=== PATIENT | male | born 1940 | race American Indian/Alaskan Native ===

== ENCOUNTER 2019-11-18 22:29 | Inpatient (IN) | payer MEDICARE ==
[2019-11-19 09:51] LABS: Bilirubin,Urine NEG (Negative); Blood,Urine SM (Negative); Color,Urine Yellow (Yellow); Mucus,Urine FEW /HPF; Protein,Urine <15 mg/dL mg/dL (Negative); Urobilinogen,Urine < 2.0 mg/dL (<2.0)
[2019-11-19 10:00] LABS: Amphetamine Screen,Urine PRESUMPTIVE NEGATIVE; Benzodiazepines Screen,Urine PRESUMPTIVE NEGATIVE; Cannabinoid Screen,Urine PRESUMPTIVE NEGATIVE; Cocaine Screen,Urine PRESUMPTIVE NEGATIVE; Methadone Screen,Urine PRESUMPTIVE NEGATIVE; Opiate Screen,Urine PRESUMPTIVE NEGATIVE
--- NOTE | 2019-11-19 10:11 | XRay Report ---
CHEST 2 VIEWS INDICATION: Chest Pain. COMPARISON: None. FINDINGS: Support devices: None. Heart: Within normal limits. Lungs/Pleura: No acute air space or interstitial disease. Pleural thickening versus tiny left effus ion. IMPRESSION: Pleural thickening versus tiny left effusion. Signer Name: John Montgomery MD Signed: 11/19/2019 10:06 AM Workstation Name: [id number]
[2019-11-19 11:19] LABS: Basophils % (Auto) 0.4 % (0.0-1.8); Eosinophils # (Auto) 0.1 K/mm3 (0.0-0.4); Eosinophils % (Auto) 1.2 % (0.0-4.3); Hematocrit 42.3 % (35.5-45.6); Hemoglobin 13.8 gm/dl (11.8-15.2); Lymphocytes # (Auto) 0.8 K/mm3 (1.2-5.4); Lymphocytes % (Auto) 14.1 % (13.4-35.0); Mean Corpuscular HGB Conc 33 % (32-34); Mean Corpuscular Volume 97 fl (84-94); Monocytes # (Auto) 0.4 K/mm3 (0.0-0.8); Monocytes % (Auto) 7.8 % (0.0-7.3); Platelet Count 184 K/mm3 (140-440); Red Blood Count 4.37 M/mm3 (3.65-5.03); Red Cell Distribution Width 17.8 % (13.2-15.2)
[2019-11-19 11:41] LABS: Free T4 (Free Thyroxine) 1.69 ng/dL (0.76-1.46)
[2019-11-19 11:44] LABS: Alanine Aminotransferase 65 units/L (7-56); Albumin 3.6 g/dL (3.9-5); BUN/Creatinine Ratio 18; Blood Urea Nitrogen 20 mg/dL (9-20); Calcium 9.3 mg/dL (8.4-10.2); Hemolysis Index 18
[2019-11-19] MEDS ORDERED: dilTIAZem 25 MG/5 ML INJ IV STA (12:06)
--- NOTE | 2019-11-19 12:20 | History and Physical Report ---
History of Present Illness Chief complaint: My blood pressure is high and I need to get it checked out History of present illness: 79-year-old male with HTN, HLD, Severe Malnutrition presents to ED for evaluation. Patient states that he has has experienced decreased exercise tolerance, and dyspnea on exertion over the past 1 week. EMS notified and upon arrival the patient was found to be in distress and transported to [facility] for evaluation. Patient seen and evaluated in the emergency department. Patient lab and imaging studies reviewed. Patient found to have atrial fibrillation with rapid ventricular response as well as symptoms consistent with diastolic CHF. Patient also found to have urinary tract infection. Patient initiated on IV antibiotic therapy. Patient admitted to ALEX unit and placed on remote telemetry due to risk of cardiac decompensation. Patient treated with IV Cardizem for medical cardioversion in the emergency department with return to normal sinus rhythm. No prior admission for review. No medication listed at time of admission for reconciliation. Past History Past Medical History: hypertension, hyperlipidemia Past Surgical History: No surgical history, Other (reviewed) Social history: . denies: smoking, alcohol abuse, prescription drug abuse, IV drug use Family history: hypertension Medications and Allergies Allergies Allergy/AdvReac Type Severity Reaction Status Date / Time No Known Allergies Allergy Unverified 11/19/19 01:07 Home Medications Medication Instructions Recorded Confirmed Last Taken Type AtorvaSTATin [Lipitor] 40 mg PO QHS 11/19/19 11/19/19 11/18/19 History Losartan [Cozaar] 100 mg PO QHS 11/19/19 11/19/19 11/18/19 History Metoprolol [Lopressor] 100 mg PO QAM 11/19/19 11/19/19 11/18/19 History Spironolactone [Aldactone] 25 mg PO QDAY 11/19/19 11/19/19 11/18/19 History Review of Systems Constitutional: no weight loss, no weight gain, no fever Ears, nose, mouth and throat: no ear discharge, no tinnitis, no nose pain, no nasal congestion Cardiovascular: no chest pain, no orthopnea, no syncope Respiratory: no cough, no excessive sputum, no hemoptysis, no dyspnea on exertion Gastrointestinal: no nausea, no diarrhea, no constipation Genitourinary Male: no hematuria, no flank pain, no urinary frequency, no nocturia, no incontinence Rectal: no pain, no incontinence, no bleeding Musculoskeletal: no neck stiffness, no shooting arm pain, no shooting leg pain Integumentary: no pruritis, no redness Neurological: no transient paralysis, no paralysis, no weakness, no parathesias Psychiatric: no anxiety, no change in sleep habits, no sleep disturbances, no insomnia, no change in appetite, no change in libido Endocrine: no cold intolerance, no polyphagia, no polydipsia, no polyuria, no nocturia, no excessive sweating Hematologic/Lymphatic: no easy bruising, no easy bleeding, no lymphadenopathy Allergic/Immunologic: no urticaria, no allergic rhinitis Exam - Constitutional Vitals: Temp Pulse Resp BP Pulse Ox 97.9 F 112 H 20 160/104 97 11/19/19 00:18 11/19/19 09:00 11/19/19 09:00 11/19/19 09:00 11/19/19 09:00 General appearance: Present: mild distress - EENT Eyes: Present: PERRL ENT: hearing intact, clear oral mucosa - Neck Neck: Present: supple, normal ROM - Respiratory Respiratory effort: normal Respiratory: bilateral: CTA - Cardiovascular Rhythm: other (tachycardia) Heart Sounds: Present: S1 & S2. Absent: rub, click - Extremities Extremities: pulses symmetrical, No edema Peripheral Pulses: within normal limits - Abdominal General gastrointestinal: Present: soft, non-tender, non-distended, normal bowel sounds Male genitourinary: Present: normal - Integumentary Integumentary: Present: clear, warm, dry - Musculoskeletal Musculoskeletal: gait normal, strength equal bilaterally - Psychiatric Psychiatric: appropriate mood/affect, intact judgment & insight - Neurologic Neurologic: CNII-XII intact, moves all extremities Results - Labs CBC & Chem 7: 11/19/19 11:09 11/19/19 11:09 Labs: Abnormal lab results 11/19/19 11/19/19 11/19/19 Range/Units 09:21 11:09 11:09 MCV 97 H (84-94) fl RDW 17.8 H (13.2-15.2) % [place] % (Auto) 7.8 H (0.0-7.3) % Lymph # 0.8 L (1.2-5.4) K/mm3 Seg Neutrophils % 76.5 H (40.0-70.0) % Potassium 5.5 H (3.6-5.0) mmol/L Chloride 109.0 H (98-107) mmol/L Carbon Dioxide 21 L (22-30) mmol/L AST 45 H (5-40) units/L ALT 65 H (7-56) units/L Albumin 3.6 L (3.9-5) g/dL Free T4 (0.76-1.46) ng/dL Urine WBC (Auto) 24.0 H (0.0-6.0) /HPF 11/19/19 Range/Units 11:09 MCV (84-94) fl RDW (13.2-15.2) % [place] % (Auto) (0.0-7.3) % Lymph # (1.2-5.4) K/mm3 Seg Neutrophils % (40.0-70.0) % Potassium (3.6-5.0) mmol/L Chloride (98-107) mmol/L Carbon Dioxide (22-30) mmol/L AST (5-40) units/L ALT (7-56) units/L Albumin (3.9-5) g/dL Free T4 1.69 H (0.76-1.46) ng/dL Urine WBC (Auto) (0.0-6.0) /HPF Assessment and Plan - Patient Problems (1) Atrial fibrillation Current Visit: Yes Status: Acute Qualifiers: Atrial fibrillation type: unspecified Qualified Code(s): I48.91 - Unspecified atrial fibrillation Plan to address problem: Admit to ALEX unit: Remote telemetry, patient cardioverted with IV Cardizem bolus, oral Cardizem, echo, cardiology consulted in ED, thyroid panel, magnesium level. (2) Diastolic CHF Current Visit: Yes Status: Acute Qualifiers: Heart failure chronicity: acute Qualified Code(s): I50.31 - Acute diastolic (congestive) heart failure Plan to address problem: Strict I/O, daily weight, BNP, echo, supplemental oxygen, pulse oximetry, blood pressure control, afterload reduction, cardiology consulted in ED. (3) UTI (urinary tract infection) Current Visit: Yes Status: Acute Qualifiers: Encounter type: initial encounter Plan to address problem: Urinalysis, IV antibiotic therapy, CBC. (4) HTN (hypertension) Current Visit: Yes Status: Acute Qualifiers: Hypertension type: essential hypertension Qualified Code(s): I10 - Essential (primary) hypertension Plan to address problem: Monitor BP every shift, continue medical management. (5) DVT prophylaxis Current Visit: Yes Status: Acute Plan to address problem: SCD to bilateral lower extremities while in bed, prophylactic heparin.
[2019-11-19] MEDS ORDERED: ALBUTEROL 2.5 MG/3 ML NEBU IH PRN (13:28)
[2019-11-19] MEDS ORDERED: ACETAMINOPHEN 325 MG TAB PO PRN (13:28)
[2019-11-19] MEDS ORDERED: ONDANSETRON 4 MG/2 ML INJ IV PRN (13:28)
--- NOTE | 2019-11-19 13:37 | Emergency Department Report ---
ED General Adult HPI - General Chief complaint: High BP Stated complaint: HTN Time Seen by Provider: 11/19/19 08:52 Source: patient Mode of arrival: Stretcher Limitations: No Limitations - History of Present Illness Initial comments: 79-year-old male with significant past history presents with department complaining of having an episode of hypertension as he was due to have his lower extremity evaluated today for an infection with an ultrasound. States that he felt fairly normal overall blackhead. Blood pressure at home it was in the 170s over the 100s which is pink and diaphragm so wanted to have it evaluated. States occasionally feels a palpitation but reports no chest pain, fever, chills, sweats, nausea, vomiting, headache, blurred blurred vision, presyncope -: Gradual Radiation: non-radiation Severity scale (0 -10): 0 Consistency: constant Improves with: none Worsens with: none Associated Symptoms: denies other symptoms Treatments Prior to Arrival: none - Related Data Allergies Allergy/AdvReac Type Severity Reaction Status Date / Time No Known Allergies Allergy Unverified 11/19/19 01:07 ED Review of Systems ROS: Stated complaint: HTN Other details as noted in HPI Comment: All other systems reviewed and negative ED Past Medical Hx - Past Medical History Previous Medical History?: Yes Hx Hypertension: Yes Additional medical history: High Cholesterol - Surgical History Past Surgical History?: No - Social History Smoking Status: Never Smoker Substance Use Type: None ED Physical Exam - General Limitations: No Limitations General appearance: alert, in no apparent distress - Head Head exam: Present: atraumatic, normocephalic - Eye Eye exam: Present: normal appearance, PERRL, EOMI Pupils: Present: normal accommodation - ENT ENT exam: Present: mucous membranes moist, TM's normal bilaterally. Absent: normal orophraynx - Neck Neck exam: Present: normal inspection - Respiratory Respiratory exam: Present: normal lung sounds bilaterally. Absent: respiratory distress, wheezes, rhonchi - Cardiovascular Cardiovascular Exam: Present: regular rate, irregular rhythm. Absent: systolic murmur, diastolic murmur, rubs, gallop - GI/Abdominal GI/Abdominal exam: Present: soft, normal bowel sounds - Rectal Rectal exam: Present: deferred - Extremities Exam Extremities exam: Present: normal inspection - Back Exam Back exam: Present: normal inspection - Neurological Exam Neurological exam: Present: alert, oriented X3 - Psychiatric Psychiatric exam: Present: normal affect, normal mood - Skin Skin exam: Present: warm, dry, intact, normal color. Absent: rash ED Course Vital Signs 11/19/19 11/19/19 11/19/19 00:18 09:00 12:36 Temperature 97.9 F Pulse Rate 119 H 112 H 109 H Respiratory 18 20 19 Rate Blood Pressure 165/121 Blood Pressure 160/104 142/102 [Right] O2 Sat by Pulse 98 97 97 Oximetry 11/19/19 11/19/19 12:40 12:51 Temperature Pulse Rate 109 H 90 Respiratory 19 Rate Blood Pressure 142/102 Blood Pressure 119/85 [Right] O2 Sat by Pulse 97 Oximetry ED Medical Decision Making - Lab Data Result diagrams: 11/19/19 11:09 11/19/19 11:09 - EKG Data Rate: tachycardia - EKG Data Interpretation: other (atrial fibrillation) Critical care attestation.: If time is entered above; I have spent that time in minutes in the direct care of this critically ill patient, excluding procedure time. ED Disposition Clinical Impression: Atrial fibrillation Disposition: OP ADMIT IP TO THIS HOSP Is pt being admited?: Yes Does the pt Need Aspirin: Yes Condition: Stable Instructions: Supraventricular Tachycardia (ED) Referrals: PRIMARY CARE, [Primary Care Provider] - 3-5 Days
[2019-11-19] MEDS ORDERED: ASPIRIN 325 MG TAB PO ONE (13:38)
[2019-11-19] MEDS ORDERED: METOPROLOL SUCCINATE XL 100 MG TAB PO ONE (15:58)
[2019-11-19] MEDS ORDERED: cefTRIAXone/NS 1 GM/50 ML 1 GM/50 ML BAG IV ONE (15:58)
[2019-11-19] MEDS: METOPROLOL TARTRATE 100 MG TAB PO SCH (16:02)
[2019-11-19] MEDS: cefTRIAXone/NS 1 GM/50 ML 1 GM/50 ML BAG IV SCH (16:03)
[2019-11-19] MEDS: dilTIAZem 30 MG TAB PO SCH (17:55)
[2019-11-19 19:48] LABS: Free T4 (Free Thyroxine) 1.45 ng/dL (0.76-1.46)
[2019-11-19] MEDS: HEPARIN 5,000 UNIT/1 ML VIAL SUB-Q SCH (21:33)
[2019-11-19] MEDS: LOSARTAN 50 MG TAB PO SCH (21:33)
[2019-11-19] MEDS ORDERED: NON-FORMULARY EACH (Losartan [Cozaar] 100 MG) PO SCH (22:00)
[2019-11-20] MEDS: dilTIAZem 30 MG TAB PO SCH ×5 (00:33→23:33)
[2019-11-20 06:59] LABS: Basophils % (Auto) 0.5 % (0.0-1.8); Eosinophils # (Auto) 0.1 K/mm3 (0.0-0.4); Hematocrit 37.8 % (35.5-45.6); Hemoglobin 12.4 gm/dl (11.8-15.2); Lymphocytes % (Auto) 18.5 % (13.4-35.0); Mean Corpuscular HGB Conc 33 % (32-34); Mean Corpuscular Volume 96 fl (84-94); Monocytes # (Auto) 0.4 K/mm3 (0.0-0.8); Monocytes % (Auto) 7.9 % (0.0-7.3); Platelet Count 173 K/mm3 (140-440); Red Blood Count 3.92 M/mm3 (3.65-5.03)
[2019-11-20 07:21] LABS: Alanine Aminotransferase 49 units/L (7-56); Albumin 3.2 g/dL (3.9-5); BUN/Creatinine Ratio 19; Blood Urea Nitrogen 23 mg/dL (9-20); Calcium 8.2 mg/dL (8.4-10.2); Hemolysis Index 3
--- NOTE | 2019-11-20 08:24 | Consultation ---
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 denies: smoking, alcohol abuse, prescription drug abuse, IV drug use Family history: hypertension Medications and Allergies Allergies Allergy/AdvReac Type Severity Reaction Status Date / Time No Known Allergies Allergy Unverified 11/19/19 01:07 Home Medications Medication Instructions Recorded Confirmed Last Taken Type AtorvaSTATin [Lipitor] 40 mg PO QHS 11/19/19 11/19/19 11/18/19 History Losartan [Cozaar] 100 mg PO QHS 11/19/19 11/19/19 11/18/19 History Metoprolol [Lopressor] 100 mg PO QAM 11/19/19 11/19/19 11/18/19 History Spironolactone [Aldactone] 25 mg PO QDAY 11/19/19 11/19/19 11/18/19 History Active Meds: Active Medications Acetaminophen (Tylenol) 650 mg PO Q4H PRN PRN Reason: Pain MILD(1-3)/Fever >100.5/MILLER Albuterol (Proventil) 2.5 mg IH Q4HRT PRN PRN Reason: Shortness Of Breath Atorvastatin Calcium (Lipitor) 40 mg PO QHS [facility] Last Admin: 11/19/19 21:33 Dose: 40 mg Documented by: Diltiazem HCl (Cardizem) 30 mg PO Q6HR [facility] Last Admin: 11/20/19 05:53 Dose: 30 mg Documented by: Heparin Sodium (Porcine) (Heparin) 5,000 unit SUB-Q Q12HR [facility] Last Admin: 11/19/19 21:33 Dose: 5,000 unit Documented by: Ceftriaxone Sodium (Rocephin/Ns 1 Gm/50 Ml) 1 gm in 50 mls @ 100 mls/hr IV Q24HR MIKA; Protocol Last Admin: 11/19/19 16:03 Dose: 100 mls/hr Documented by: Losartan Potassium (Cozaar) 50 mg PO QHS [facility] Last Admin: 11/19/19 21:33 Dose: 50 mg Documented by: Metoprolol Tartrate (Metoprolol) 100 mg PO DAILY [facility] Last Admin: 11/19/19 16:02 Dose: 100 mg Documented by: Ondansetron HCl (Zofran) 4 mg IV Q8H PRN PRN Reason: Nausea And Vomiting Sodium Chloride (Sodium Chloride Flush Syringe 10 Ml) 10 ml IV BID [facility] Last Admin: 11/19/19 21:33 Dose: 10 ml Documented by: Sodium Chloride (Sodium Chloride Flush Syringe 10 Ml) 10 ml IV PRN PRN PRN Reason: LINE FLUSH Stop: 11/29/19 13:27 Spironolactone (Aldactone) 25 mg PO QDAY [facility] Physical Examination Vital Signs Temp Pulse Resp BP Pulse Ox 97.9 F 119 H 18 165/121 98 11/19/19 00:18 11/19/19 00:18 11/19/19 00:18 11/19/19 00:18 11/19/19 00:18 General appearance: no acute distress, cachectic HEENT: Positive: PERRL, EOMI Neck: Positive: neck supple Cardiac: Positive: irregularly irregular, S1/S2 Lungs: Positive: Normal Exam Neuro: Positive: Grossly Intact Abdomen: Positive: Soft Extremities: Absent: edema Results 11/20/19 06:03 11/20/19 06:03 Cardiac Enzymes 11/19/19 11/20/19 Range/Units 11:09 06:03 AST 45 H 32 (5-40) units/L CBC 11/19/19 11/20/19 Range/Units 11:09 06:03 WBC 5.5 5.5 (4.5-11.0) K/mm3 RBC 4.37 3.92 (3.65-5.03) M/mm3 Hgb 13.8 12.4 (11.8-15.2) gm/dl Hct 42.3 37.8 (35.5-45.6) % Plt Count 184 173 (140-440) K/mm3 Lymph # 0.8 L 1.0 L (1.2-5.4) K/mm3 [place] # 0.4 0.4 (0.0-0.8) K/mm3 Eos # 0.1 0.1 (0.0-0.4) K/mm3 Baso # 0.0 0.0 (0.0-0.1) K/mm3 Comprehensive Metabolic Panel 11/19/19 11/20/19 Range/Units 11:09 06:03 Sodium 142 139 (137-145) mmol/L Potassium 5.5 H 4.5 (3.6-5.0) mmol/L Chloride 109.0 H 108.2 H (98-107) mmol/L Carbon Dioxide 21 L 19 L (22-30) mmol/L BUN 20 23 H (9-20) mg/dL Creatinine 1.1 1.2 (0.8-1.5) mg/dL Glucose 97 95 (75-100) mg/dL Calcium 9.3 8.2 L (8.4-10.2) mg/dL AST 45 H 32 (5-40) units/L ALT 65 H 49 (7-56) units/L Alkaline Phosphatase 84 77 (35-129) units/L Total Protein 6.9 5.5 L D (6.3-8.2) g/dL Albumin 3.6 L 3.2 L (3.9-5) g/dL
[2019-11-20] MEDS: HEPARIN 5,000 UNIT/1 ML VIAL SUB-Q SCH ×2 (09:13→23:34)
[2019-11-20] MEDS: SPIRONOLACTONE 25 MG TAB PO SCH (09:13)
[2019-11-20] MEDS: METOPROLOL TARTRATE 100 MG TAB PO SCH (09:13)
[2019-11-20] MEDS: cefTRIAXone/NS 1 GM/50 ML 1 GM/50 ML BAG IV SCH (09:15)
--- NOTE | 2019-11-20 10:43 | Progress Note ---
Assessment and Plan Assessment and plan: Atrial fibrillation. New onset. Continue medications for rate control. Cardiology does not feel that the patient is a candidate for long-term anticoagulation. Severe dilated cardiomyopathy. EF of 20 to 25%. Acute on chronic systolic heart failure exacerbation. Continue current regimen per cardiology. Hypertension. Continue home antihypertensive medications. Hyperlipidemia. Continue statins. Alzheimer's dementia. Right lower extremity pain. Check right lower extremity x-ray. History Interval history: No new issues overnight. Patient complains of right anterior leg (zurita) pain. Hospitalist Physical - Constitutional Vitals: Temp Pulse Resp BP Pulse Ox 97.4 F L 96 H 18 138/77 98 11/20/19 08:27 11/20/19 10:00 11/20/19 10:00 11/20/19 09:13 11/20/19 10:00 General appearance: Present: no acute distress, cachectic - EENT Eyes: Present: PERRL, EOM intact ENT: hearing intact, clear oral mucosa, dentition normal - Neck Neck: Present: supple, normal ROM - Respiratory Respiratory effort: normal Respiratory: bilateral: CTA - Cardiovascular Rhythm: regular Heart Sounds: Present: S1 & S2. Absent: gallop, rub - Extremities Extremities: no ischemia, No edema, Full ROM - Abdominal General gastrointestinal: soft, non-tender, non-distended, normal bowel sounds - Integumentary Integumentary: Present: clear, warm, dry - Neurologic Neurologic: CNII-XII intact, moves all extremities Results - Labs CBC & Chem 7: 11/20/19 06:03 11/20/19 06:03 Labs: Laboratory Last Values WBC 5.5 K/mm3 (4.5-11.0) 11/20/19 06:03 RBC 3.92 M/mm3 (3.65-5.03) 11/20/19 06:03 Hgb 12.4 gm/dl (11.8-15.2) 11/20/19 06:03 Hct 37.8 % (35.5-45.6) 11/20/19 06:03 MCV 96 fl (84-94) H 11/20/19 06:03 MCH 32 pg (28-32) 11/20/19 06:03 MCHC 33 % (32-34) 11/20/19 06:03 RDW 18.0 % (13.2-15.2) H 11/20/19 06:03 Plt Count 173 K/mm3 (140-440) 11/20/19 06:03 Lymph % (Auto) 18.5 % (13.4-35.0) 11/20/19 06:03 [place] % (Auto) 7.9 % (0.0-7.3) H 11/20/19 06:03 Eos % (Auto) 2.0 % (0.0-4.3) 11/20/19 06:03 Baso % (Auto) 0.5 % (0.0-1.8) 11/20/19 06:03 Lymph # 1.0 K/mm3 (1.2-5.4) L 11/20/19 06:03 [place] # 0.4 K/mm3 (0.0-0.8) 11/20/19 06:03 Eos # 0.1 K/mm3 (0.0-0.4) 11/20/19 06:03 Baso # 0.0 K/mm3 (0.0-0.1) 11/20/19 06:03 Seg Neutrophils % 71.1 % (40.0-70.0) H 11/20/19 06:03 Seg Neutrophils # 3.9 K/mm3 (1.8-7.7) 11/20/19 06:03 Sodium 139 mmol/L (137-145) 11/20/19 06:03 Potassium 4.5 mmol/L (3.6-5.0) 11/20/19 06:03 Chloride 108.2 mmol/L (98-107) H 11/20/19 06:03 Carbon Dioxide 19 mmol/L (22-30) L 11/20/19 06:03 Anion Gap 16 mmol/L 11/20/19 06:03 BUN 23 mg/dL (9-20) H 11/20/19 06:03 Creatinine 1.2 mg/dL (0.8-1.5) 11/20/19 06:03 Estimated GFR > 60 ml/min 11/20/19 06:03 BUN/Creatinine Ratio 19 % 11/20/19 06:03 Glucose 95 mg/dL (75-100) 11/20/19 06:03 Calcium 8.2 mg/dL (8.4-10.2) L 11/20/19 06:03 Magnesium 2.20 mg/dL (1.7-2.3) 11/19/19 18:59 Total Bilirubin 0.60 mg/dL (0.1-1.2) 11/20/19 06:03 AST 32 units/L (5-40) 11/20/19 06:03 ALT 49 units/L (7-56) 11/20/19 06:03 Alkaline Phosphatase 77 units/L (35-129) 11/20/19 06:03 Troponin T 0.012 ng/mL (0.00-0.029) 11/19/19 18:59 NT-Pro-B Natriuret Pep 5711 pg/mL (0-900) H 11/19/19 18:59 Total Protein 5.5 g/dL (6.3-8.2) L D 11/20/19 06:03 Albumin 3.2 g/dL (3.9-5) L 11/20/19 06:03 Albumin/Globulin Ratio 1.4 % 11/20/19 06:03 TSH 1.040 mlU/mL (0.270-4.200) 11/19/19 18:59 Free T4 1.45 ng/dL (0.76-1.46) 11/19/19 18:59 Urine Color Yellow (Yellow) 11/19/19 09:21 Urine Turbidity Clear (Clear) 11/19/19 09:21 Urine pH 5.0 (5.0-7.0) 11/19/19 09:21 Ur Specific [place] 1.019 (1.003-1.030) 11/19/19 09:21 Urine Protein <15 mg/dl mg/dL (Negative) 11/19/19 09:21 Urine Glucose (UA) Neg mg/dL (Negative) 11/19/19 09:21 Urine Ketones Neg mg/dL (Negative) 11/19/19 09:21 Urine Blood Sm (Negative) 11/19/19 09:21 Urine Nitrite Neg (Negative) 11/19/19 09:21 Urine Bilirubin Neg (Negative) 11/19/19 09:21 Urine Urobilinogen < 2.0 mg/dL (<2.0) 11/19/19 09:21 Ur Leukocyte Esterase Sm (Negative) 11/19/19 09:21 Urine WBC (Auto) 24.0 /HPF (0.0-6.0) H 11/19/19 09:21 Urine RBC (Auto) 2.0 /HPF (0.0-6.0) 11/19/19 09:21 U Epithel Cells (Auto) < 1.0 /HPF (0-13.0) 11/19/19 09:21 Urine Mucus Few /HPF 11/19/19 09:21 Urine Opiates Screen Presumptive negative 11/19/19 09:21 Urine Methadone Screen Presumptive negative 11/19/19 09:21 Ur Barbiturates Screen Presumptive negative 11/19/19 09:21 Ur Phencyclidine Scrn Presumptive negative 11/19/19 09:21 Ur Amphetamines Screen Presumptive negative 11/19/19 09:21 U Benzodiazepines Scrn Presumptive negative 11/19/19 09:21 Urine Cocaine Screen Presumptive negative 11/19/19 09:21 U Marijuana (THC) Screen Presumptive negative 11/19/19 09:21 Drugs of Abuse Note Disclamer 11/19/19 09:21 Active Medications - Current Medications Current Medications: Generic Name Dose Route Start Last Admin Trade Name Freq PRN Reason Stop Dose Admin Acetaminophen 650 mg 11/19/19 13:28 Tylenol PO Q4H PRN Pain MILD(1-3)/Fever >100.5/MILLER Albuterol 2.5 mg 11/19/19 13:28 Proventil IH Q4HRT PRN Shortness Of Breath Atorvastatin Calcium 40 mg 11/19/19 22:00 11/19/19 21:33 Lipitor PO 40 mg QHS [facility]KA Administration Diltiazem HCl 30 mg 11/19/19 18:00 11/20/19 05:53 Cardizem PO 30 mg Q6HR [facility] Administration Heparin Sodium (Porcine) 5,000 unit 11/19/19 22:00 11/20/19 09:13 Heparin SUB-Q 5,000 unit Q12HR [facility]KA Administration Ceftriaxone Sodium 1 gm in 50 mls @ 100 mls/hr 11/19/19 15:30 11/20/19 09:15 Rocephin/Ns 1 Gm/50 Ml IV 100 mls/hr Q24HR MIKA Administration Protocol Losartan Potassium 50 mg 11/19/19 22:00 11/19/19 21:33 Cozaar PO 50 mg QHS [facility]KA Administration Metoprolol Tartrate 100 mg 11/19/19 15:00 11/20/19 09:13 Metoprolol PO 100 mg DAILY [facility] Administration Ondansetron HCl 4 mg 11/19/19 13:28 Zofran IV Q8H PRN Nausea And Vomiting Sodium Chloride 10 ml 11/19/19 22:00 11/20/19 09:14 Sodium Chloride Flush Syringe 10 Ml IV 10 ml BID MIKA Administration Sodium Chloride 10 ml 11/19/19 13:28 Sodium Chloride Flush Syringe 10 Ml IV 11/29/19 13:27 PRN PRN LINE FLUSH Spironolactone 25 mg 11/20/19 10:00 11/20/19 09:13 Aldactone PO 25 mg QDAY [facility]KA Administration
--- NOTE | 2019-11-20 13:56 | XRay Report ---
RIGHT TIBIA FIBULA 2 VIEWS 1233 INDICATION: c/o zurita pain COMPARISON: None available. FINDINGS: Distal tibia and fibula are not fully included on both views. No fractures or dislocations are seen. Mild knee degenerative changes are noted. Moderate atherosclerotic calcifications are seen. Signer Name: Stephen Larsen MD Signed: 11/20/2019 1:51 PM Workstation Name: [id number]
[2019-11-20] MEDS: LOSARTAN 50 MG TAB PO SCH (23:32)
[2019-11-21 06:41] LABS: Basophils % (Auto) 0.5 % (0.0-1.8); Eosinophils # (Auto) 0.1 K/mm3 (0.0-0.4); Eosinophils % (Auto) 1.1 % (0.0-4.3); Hematocrit 39.2 % (35.5-45.6); Hemoglobin 12.9 gm/dl (11.8-15.2); Lymphocytes # (Auto) 1.1 K/mm3 (1.2-5.4); Lymphocytes % (Auto) 20.9 % (13.4-35.0); Mean Corpuscular HGB Conc 33 % (32-34); Mean Corpuscular Volume 96 fl (84-94); Monocytes # (Auto) 0.6 K/mm3 (0.0-0.8); Monocytes % (Auto) 10.1 % (0.0-7.3); Platelet Count 190 K/mm3 (140-440); Red Blood Count 4.09 M/mm3 (3.65-5.03); Red Cell Distribution Width 17.7 % (13.2-15.2)
[2019-11-21 06:56] LABS: BUN/Creatinine Ratio 17; Blood Urea Nitrogen 22 mg/dL (9-20); Hemolysis Index 7
--- NOTE | 2019-11-21 07:57 | Progress Note ---
Assessment and Plan Assessment and plan: Atrial fibrillation. New onset. Continue medications for rate control. Cardiology does not feel that the patient is a candidate for long-term anticoagulation. Severe dilated cardiomyopathy. EF of 20 to 25%. Acute on chronic systolic heart failure exacerbation. Continue current regimen per cardiology. Continue metoprolol, spironolactone and losartan. Hypertension. Continue current regimen Hyperlipidemia. Continue statins. UTI. Continue Rocephin. Follow-up urine culture. Alzheimer's dementia. Right lower extremity pain. X-rays negative. Disposition. I called the at [phone] for update but no answer. History Interval history: No new issues overnight. Hospitalist Physical - Constitutional Vitals: Temp Pulse Resp BP Pulse Ox 98.3 F 89 18 133/84 96 11/21/19 02:32 11/21/19 02:32 11/21/19 02:32 11/21/19 02:32 11/21/19 02:32 General appearance: Present: no acute distress, cachectic - EENT Eyes: Present: PERRL, EOM intact ENT: hearing intact, clear oral mucosa, dentition normal - Neck Neck: Present: supple, normal ROM - Respiratory Respiratory effort: normal Respiratory: bilateral: CTA - Cardiovascular Rhythm: regular Heart Sounds: Present: S1 & S2. Absent: gallop, rub - Extremities Extremities: no ischemia, No edema, Full ROM - Abdominal General gastrointestinal: soft, non-tender, non-distended, normal bowel sounds - Integumentary Integumentary: Present: clear, warm, dry - Neurologic Neurologic: CNII-XII intact, moves all extremities Results - Labs CBC & Chem 7: 11/21/19 05:54 11/21/19 05:54 Labs: Laboratory Last Values WBC 5.5 K/mm3 (4.5-11.0) 11/21/19 05:54 RBC 4.09 M/mm3 (3.65-5.03) 11/21/19 05:54 Hgb 12.9 gm/dl (11.8-15.2) 11/21/19 05:54 Hct 39.2 % (35.5-45.6) 11/21/19 05:54 MCV 96 fl (84-94) H 11/21/19 05:54 MCH 32 pg (28-32) 11/21/19 05:54 MCHC 33 % (32-34) 11/21/19 05:54 RDW 17.7 % (13.2-15.2) H 11/21/19 05:54 Plt Count 190 K/mm3 (140-440) 11/21/19 05:54 Lymph % (Auto) 20.9 % (13.4-35.0) 11/21/19 05:54 [place] % (Auto) 10.1 % (0.0-7.3) H 11/21/19 05:54 Eos % (Auto) 1.1 % (0.0-4.3) 11/21/19 05:54 Baso % (Auto) 0.5 % (0.0-1.8) 11/21/19 05:54 Lymph # 1.1 K/mm3 (1.2-5.4) L 11/21/19 05:54 [place] # 0.6 K/mm3 (0.0-0.8) 11/21/19 05:54 Eos # 0.1 K/mm3 (0.0-0.4) 11/21/19 05:54 Baso # 0.0 K/mm3 (0.0-0.1) 11/21/19 05:54 Seg Neutrophils % 67.4 % (40.0-70.0) 11/21/19 05:54 Seg Neutrophils # 3.7 K/mm3 (1.8-7.7) 11/21/19 05:54 Sodium 138 mmol/L (137-145) 11/21/19 05:54 Potassium 4.5 mmol/L (3.6-5.0) 11/21/19 05:54 Chloride 107.9 mmol/L (98-107) H 11/21/19 05:54 Carbon Dioxide 18 mmol/L (22-30) L 11/21/19 05:54 Anion Gap 17 mmol/L 11/21/19 05:54 BUN 22 mg/dL (9-20) H 11/21/19 05:54 Creatinine 1.3 mg/dL (0.8-1.5) 11/21/19 05:54 Estimated GFR > 60 ml/min 11/21/19 05:54 BUN/Creatinine Ratio 17 % 11/21/19 05:54 Glucose 105 mg/dL (75-100) H 11/21/19 05:54 Calcium 9.0 mg/dL (8.4-10.2) 11/21/19 05:54 Magnesium 2.20 mg/dL (1.7-2.3) 11/19/19 18:59 Total Bilirubin 0.60 mg/dL (0.1-1.2) 11/20/19 06:03 AST 32 units/L (5-40) 11/20/19 06:03 ALT 49 units/L (7-56) 11/20/19 06:03 Alkaline Phosphatase 77 units/L (35-129) 11/20/19 06:03 Troponin T 0.012 ng/mL (0.00-0.029) 11/19/19 18:59 NT-Pro-B Natriuret Pep 5711 pg/mL (0-900) H 11/19/19 18:59 Total Protein 5.5 g/dL (6.3-8.2) L D 11/20/19 06:03 Albumin 3.2 g/dL (3.9-5) L 11/20/19 06:03 Albumin/Globulin Ratio 1.4 % 11/20/19 06:03 TSH 1.040 mlU/mL (0.270-4.200) 11/19/19 18:59 Free T4 1.45 ng/dL (0.76-1.46) 11/19/19 18:59 Urine Color Yellow (Yellow) 11/19/19 09:21 Urine Turbidity Clear (Clear) 11/19/19 09:21 Urine pH 5.0 (5.0-7.0) 11/19/19 09:21 Ur Specific [place] 1.019 (1.003-1.030) 11/19/19 09:21 Urine Protein <15 mg/dl mg/dL (Negative) 11/19/19 09:21 Urine Glucose (UA) Neg mg/dL (Negative) 11/19/19 09:21 Urine Ketones Neg mg/dL (Negative) 11/19/19 09:21 Urine Blood Sm (Negative) 11/19/19 09:21 Urine Nitrite Neg (Negative) 11/19/19 09:21 Urine Bilirubin Neg (Negative) 11/19/19 09:21 Urine Urobilinogen < 2.0 mg/dL (<2.0) 11/19/19 09:21 Ur Leukocyte Esterase Sm (Negative) 11/19/19 09:21 Urine WBC (Auto) 24.0 /HPF (0.0-6.0) H 11/19/19 09:21 Urine RBC (Auto) 2.0 /HPF (0.0-6.0) 11/19/19 09:21 U Epithel Cells (Auto) < 1.0 /HPF (0-13.0) 11/19/19 09:21 Urine Mucus Few /HPF 11/19/19 09:21 Urine Opiates Screen Presumptive negative 11/19/19 09:21 Urine Methadone Screen Presumptive negative 11/19/19 09:21 Ur Barbiturates Screen Presumptive negative 11/19/19 09:21 Ur Phencyclidine Scrn Presumptive negative 11/19/19 09:21 Ur Amphetamines Screen Presumptive negative 11/19/19 09:21 U Benzodiazepines Scrn Presumptive negative 11/19/19 09:21 Urine Cocaine Screen Presumptive negative 11/19/19 09:21 U Marijuana (THC) Screen Presumptive negative 11/19/19 09:21 Drugs of Abuse Note Disclamer 11/19/19 09:21 Active Medications - Current Medications Current Medications: Generic Name Dose Route Start Last Admin Trade Name Freq PRN Reason Stop Dose Admin Acetaminophen 650 mg 11/19/19 13:28 Tylenol PO Q4H PRN Pain MILD(1-3)/Fever >100.5/MILLER Albuterol 2.5 mg 11/19/19 13:28 Proventil IH Q4HRT PRN Shortness Of Breath Atorvastatin Calcium 40 mg 11/19/19 22:00 11/20/19 23:33 Lipitor PO 40 mg QHS MIKA Administration Diltiazem HCl 30 mg 11/19/19 18:00 11/20/19 23:33 Cardizem PO 30 mg Q6HR MIKA Administration Heparin Sodium (Porcine) 5,000 unit 11/19/19 22:00 11/20/19 23:34 Heparin SUB-Q 5,000 unit Q12HR MIKA Administration Ceftriaxone Sodium 1 gm in 50 mls @ 100 mls/hr 11/19/19 15:30 11/20/19 09:15 Rocephin/Ns 1 Gm/50 Ml IV 100 mls/hr Q24HR MIKA Administration Protocol Losartan Potassium 50 mg 11/19/19 22:00 11/20/19 23:32 Cozaar PO 50 mg QHS MIKA Administration Metoprolol Tartrate 100 mg 11/19/19 15:00 11/20/19 09:13 Metoprolol PO 100 mg DAILY MIKA Administration Ondansetron HCl 4 mg 11/19/19 13:28 Zofran IV Q8H PRN Nausea And Vomiting Sodium Chloride 10 ml 11/19/19 22:00 11/21/19 04:55 Sodium Chloride Flush Syringe 10 Ml IV 10 ml BID MIKA Administration Sodium Chloride 10 ml 11/19/19 13:28 Sodium Chloride Flush Syringe 10 Ml IV 11/29/19 13:27 PRN PRN LINE FLUSH Spironolactone 25 mg 11/20/19 10:00 11/20/19 09:13 Aldactone PO 25 mg QDAY MIKA Administration
[2019-11-21] MEDS: cefTRIAXone/NS 1 GM/50 ML 1 GM/50 ML BAG IV SCH (10:10)
[2019-11-21] MEDS: HEPARIN 5,000 UNIT/1 ML VIAL SUB-Q SCH ×2 (10:13→21:44)
[2019-11-21] MEDS: SPIRONOLACTONE 25 MG TAB PO SCH (10:14)
[2019-11-21] MEDS: METOPROLOL TARTRATE 100 MG TAB PO SCH (10:14)
[2019-11-21] MEDS: dilTIAZem 30 MG TAB PO SCH ×3 (12:06→18:08)
--- NOTE | 2019-11-21 18:26 | Progress Note ---
Subjective Date of service: 11/21/19 Interval history: Impression New onset Afib, at this time, pt is asymptomatic Severe dilated CMP EF 20-25% HTN HLD Dementia Malnutrition Plan Rate control for afib I do not believe he is candidate for long-term anticoagulation cont heparin SQ cont CHF meds as prescribed CV stable at this time Would treat conservatively Objective Vital Signs Temp Pulse Resp BP Pulse Ox 11/21/19 18:08 95 H 106/68 11/21/19 18:05 95 H 106/68 98 11/21/19 13:38 97.3 F L 73 18 121/78 100 11/21/19 12:06 93 H 146/99 99 11/21/19 11:22 97 11/21/19 10:14 91 H 126/90 11/21/19 10:13 104 H 126/90 97 11/21/19 10:00 100 H 18 99 11/21/19 07:56 97.7 F 119 H 18 149/101 99 11/21/19 02:32 98.3 F 89 18 133/84 96 11/20/19 23:32 54 L 118/87 11/20/19 19:36 97.4 F L 54 L 18 119/87 95 - Physical Examination HEENT: Positive: PERRL, EOMI Neck: Positive: neck supple Cardiac: Positive: irregularly irregular Lungs: Positive: Normal Exam Neuro: Positive: Grossly Intact Abdomen: Positive: Soft Extremities: Absent: edema - Labs and Meds CBC 11/21/19 Range/Units 05:54 WBC 5.5 (4.5-11.0) K/mm3 RBC 4.09 (3.65-5.03) M/mm3 Hgb 12.9 (11.8-15.2) gm/dl Hct 39.2 (35.5-45.6) % Plt Count 190 (140-440) K/mm3 Lymph # 1.1 L (1.2-5.4) K/mm3 [place] # 0.6 (0.0-0.8) K/mm3 Eos # 0.1 (0.0-0.4) K/mm3 Baso # 0.0 (0.0-0.1) K/mm3 Comprehensive Metabolic Panel 11/21/19 Range/Units 05:54 Sodium 138 (137-145) mmol/L Potassium 4.5 (3.6-5.0) mmol/L Chloride 107.9 H (98-107) mmol/L Carbon Dioxide 18 L (22-30) mmol/L BUN 22 H (9-20) mg/dL Creatinine 1.3 (0.8-1.5) mg/dL Glucose 105 H (75-100) mg/dL Calcium 9.0 (8.4-10.2) mg/dL
[2019-11-21] MEDS: LOSARTAN 50 MG TAB PO SCH (21:43)
[2019-11-22] MEDS: dilTIAZem 30 MG TAB PO SCH ×4 (01:00→18:20)
--- NOTE | 2019-11-22 07:34 | Progress Note ---
Assessment and Plan Assessment and plan: Atrial fibrillation. New onset. Continue medications for rate control. Cardiology does not feel that the patient is a candidate for long-term anticoagulation. Severe dilated cardiomyopathy. EF of 20 to 25%. Acute on chronic systolic heart failure exacerbation. Continue current regimen per cardiology. Continue metoprolol, spironolactone and losartan. Hypertension. Continue current regimen Hyperlipidemia. Continue statins. UTI. Continue Rocephin. Follow-up urine culture. Alzheimer's dementia. Right lower extremity pain. X-rays negative. Disposition. I called the at [phone] for update but no answer. Anticipate discharge in a.m. History Interval history: No new issues overnight. Hospitalist Physical - Constitutional Vitals: Temp Pulse Resp BP Pulse Ox 98.3 F 108 H 18 154/107 95 11/22/19 02:36 11/22/19 02:36 11/22/19 02:36 11/22/19 02:36 11/22/19 02:36 General appearance: Present: no acute distress, cachectic - EENT Eyes: Present: PERRL, EOM intact ENT: hearing intact, clear oral mucosa, dentition normal - Neck Neck: Present: supple, normal ROM - Respiratory Respiratory effort: normal Respiratory: bilateral: CTA - Cardiovascular Rhythm: regular Heart Sounds: Present: S1 & S2. Absent: gallop, rub - Extremities Extremities: no ischemia, No edema, Full ROM - Abdominal General gastrointestinal: soft, non-tender, non-distended, normal bowel sounds - Integumentary Integumentary: Present: clear, warm, dry - Neurologic Neurologic: CNII-XII intact, moves all extremities Results - Labs CBC & Chem 7: 11/21/19 05:54 11/21/19 05:54 Labs: Laboratory Last Values WBC 5.5 K/mm3 (4.5-11.0) 11/21/19 05:54 RBC 4.09 M/mm3 (3.65-5.03) 11/21/19 05:54 Hgb 12.9 gm/dl (11.8-15.2) 11/21/19 05:54 Hct 39.2 % (35.5-45.6) 11/21/19 05:54 MCV 96 fl (84-94) H 11/21/19 05:54 MCH 32 pg (28-32) 11/21/19 05:54 MCHC 33 % (32-34) 11/21/19 05:54 RDW 17.7 % (13.2-15.2) H 11/21/19 05:54 Plt Count 190 K/mm3 (140-440) 11/21/19 05:54 Lymph % (Auto) 20.9 % (13.4-35.0) 11/21/19 05:54 [place] % (Auto) 10.1 % (0.0-7.3) H 11/21/19 05:54 Eos % (Auto) 1.1 % (0.0-4.3) 11/21/19 05:54 Baso % (Auto) 0.5 % (0.0-1.8) 11/21/19 05:54 Lymph # 1.1 K/mm3 (1.2-5.4) L 11/21/19 05:54 [place] # 0.6 K/mm3 (0.0-0.8) 11/21/19 05:54 Eos # 0.1 K/mm3 (0.0-0.4) 11/21/19 05:54 Baso # 0.0 K/mm3 (0.0-0.1) 11/21/19 05:54 Seg Neutrophils % 67.4 % (40.0-70.0) 11/21/19 05:54 Seg Neutrophils # 3.7 K/mm3 (1.8-7.7) 11/21/19 05:54 Sodium 138 mmol/L (137-145) 11/21/19 05:54 Potassium 4.5 mmol/L (3.6-5.0) 11/21/19 05:54 Chloride 107.9 mmol/L (98-107) H 11/21/19 05:54 Carbon Dioxide 18 mmol/L (22-30) L 11/21/19 05:54 Anion Gap 17 mmol/L 11/21/19 05:54 BUN 22 mg/dL (9-20) H 11/21/19 05:54 Creatinine 1.3 mg/dL (0.8-1.5) 11/21/19 05:54 Estimated GFR > 60 ml/min 11/21/19 05:54 BUN/Creatinine Ratio 17 % 11/21/19 05:54 Glucose 105 mg/dL (75-100) H 11/21/19 05:54 Calcium 9.0 mg/dL (8.4-10.2) 11/21/19 05:54 Magnesium 2.20 mg/dL (1.7-2.3) 11/19/19 18:59 Total Bilirubin 0.60 mg/dL (0.1-1.2) 11/20/19 06:03 AST 32 units/L (5-40) 11/20/19 06:03 ALT 49 units/L (7-56) 11/20/19 06:03 Alkaline Phosphatase 77 units/L (35-129) 11/20/19 06:03 Troponin T 0.012 ng/mL (0.00-0.029) 11/19/19 18:59 NT-Pro-B Natriuret Pep 5711 pg/mL (0-900) H 11/19/19 18:59 Total Protein 5.5 g/dL (6.3-8.2) L D 11/20/19 06:03 Albumin 3.2 g/dL (3.9-5) L 11/20/19 06:03 Albumin/Globulin Ratio 1.4 % 11/20/19 06:03 TSH 1.040 mlU/mL (0.270-4.200) 11/19/19 18:59 Free T4 1.45 ng/dL (0.76-1.46) 11/19/19 18:59 Urine Color Yellow (Yellow) 11/19/19 09:21 Urine Turbidity Clear (Clear) 11/19/19 09:21 Urine pH 5.0 (5.0-7.0) 11/19/19 09:21 Ur Specific [place] 1.019 (1.003-1.030) 11/19/19 09:21 Urine Protein <15 mg/dl mg/dL (Negative) 11/19/19 09:21 Urine Glucose (UA) Neg mg/dL (Negative) 11/19/19 09:21 Urine Ketones Neg mg/dL (Negative) 11/19/19 09:21 Urine Blood Sm (Negative) 11/19/19 09:21 Urine Nitrite Neg (Negative) 11/19/19 09:21 Urine Bilirubin Neg (Negative) 11/19/19 09:21 Urine Urobilinogen < 2.0 mg/dL (<2.0) 11/19/19 09:21 Ur Leukocyte Esterase Sm (Negative) 11/19/19 09:21 Urine WBC (Auto) 24.0 /HPF (0.0-6.0) H 11/19/19 09:21 Urine RBC (Auto) 2.0 /HPF (0.0-6.0) 11/19/19 09:21 U Epithel Cells (Auto) < 1.0 /HPF (0-13.0) 11/19/19 09:21 Urine Mucus Few /HPF 11/19/19 09:21 Urine Opiates Screen Presumptive negative 11/19/19 09:21 Urine Methadone Screen Presumptive negative 11/19/19 09:21 Ur Barbiturates Screen Presumptive negative 11/19/19 09:21 Ur Phencyclidine Scrn Presumptive negative 11/19/19 09:21 Ur Amphetamines Screen Presumptive negative 11/19/19 09:21 U Benzodiazepines Scrn Presumptive negative 11/19/19 09:21 Urine Cocaine Screen Presumptive negative 11/19/19 09:21 U Marijuana (THC) Screen Presumptive negative 11/19/19 09:21 Drugs of Abuse Note Disclamer 11/19/19 09:21 Active Medications - Current Medications Current Medications: Generic Name Dose Route Start Last Admin Trade Name Freq PRN Reason Stop Dose Admin Acetaminophen 650 mg 11/19/19 13:28 Tylenol PO Q4H PRN Pain MILD(1-3)/Fever >100.5/MILLER Albuterol 2.5 mg 11/19/19 13:28 Proventil IH Q4HRT PRN Shortness Of Breath Atorvastatin Calcium 40 mg 11/19/19 22:00 11/21/19 21:44 Lipitor PO 40 mg QHS MIKA Administration Diltiazem HCl 30 mg 11/19/19 18:00 11/22/19 05:49 Cardizem PO 30 mg Q6HR MIKA Administration Heparin Sodium (Porcine) 5,000 unit 11/19/19 22:00 11/21/19 21:44 Heparin SUB-Q 5,000 unit Q12HR MIKA Administration Ceftriaxone Sodium 1 gm in 50 mls @ 100 mls/hr 11/19/19 15:30 11/21/19 10:10 Rocephin/Ns 1 Gm/50 Ml IV 100 mls/hr Q24HR MIKA Administration Protocol Losartan Potassium 50 mg 11/19/19 22:00 12/29/19 21:43 Cozaar PO 50 mg QHS MIKA Administration Metoprolol Tartrate 100 mg 11/19/19 15:00 11/21/19 10:14 Metoprolol PO 100 mg DAILY MIKA Administration Ondansetron HCl 4 mg 11/19/19 13:28 Zofran IV Q8H PRN Nausea And Vomiting Sodium Chloride 10 ml 11/19/19 22:00 11/21/19 21:44 Sodium Chloride Flush Syringe 10 Ml IV 10 ml BID MIKA Administration Sodium Chloride 10 ml 11/19/19 13:28 Sodium Chloride Flush Syringe 10 Ml IV 11/29/19 13:27 PRN PRN LINE FLUSH Spironolactone 25 mg 11/20/19 10:00 11/21/19 10:14 Aldactone PO 25 mg QDAY MIKA Administration
--- NOTE | 2019-11-22 08:39 | Progress Note ---
Assessment and Plan Afib, rate control on diltiazem and metoprolol Dilated CMP, uncertain duration EF 25-30% by echo this admission EF 50-55% in 2015 HTN HLD Subjective Date of service: 11/22/19 Interval history: Patient is alert and oriented. He has no cardiac complaints. Atrial fibrillation on telemetry monitoring. Objective Vital Signs Temp Pulse Resp BP BP Pulse Ox 11/22/19 07:00 97.7 F 96 H 147/114 11/22/19 02:36 98.3 F 108 H 18 154/107 95 11/21/19 22:00 18 100 11/21/19 21:43 84 141/86 11/21/19 20:19 84 11/21/19 19:52 97.7 F 84 18 141/86 100 11/21/19 18:08 95 H 106/68 11/21/19 18:05 95 H 106/68 98 11/21/19 13:38 97.3 F L 73 18 121/78 100 11/21/19 12:06 93 H 146/99 99 11/21/19 11:22 97 11/21/19 10:14 91 H 126/90 11/21/19 10:13 104 H 126/90 97 11/21/19 10:00 100 H 18 99 - Physical Examination General: No Apparent Distress HEENT: Positive: PERRL Neck: Positive: neck supple Cardiac: Positive: irregularly irregular Lungs: Positive: Decreased Breath Sounds Neuro: Positive: Grossly Intact Abdomen: Positive: Soft Extremities: Absent: edema
[2019-11-22] MEDS: HEPARIN 5,000 UNIT/1 ML VIAL SUB-Q SCH ×2 (09:33→21:34)
[2019-11-22] MEDS: METOPROLOL TARTRATE 100 MG TAB PO SCH (09:34)
[2019-11-22] MEDS: cefTRIAXone/NS 1 GM/50 ML 1 GM/50 ML BAG IV SCH (09:35)
[2019-11-22] MEDS: SPIRONOLACTONE 25 MG TAB PO SCH (09:35)
[2019-11-22] MEDS: LOSARTAN 50 MG TAB PO SCH (21:34)
[2019-11-23] MEDS: dilTIAZem 30 MG TAB PO SCH ×4 (00:10→17:41)
[2019-11-23] MEDS ORDERED: REGADENOSON 0.4 MG/5 ML INJ IV ONE ×2 (06:58→07:02)
[2019-11-23] MEDS: cefTRIAXone/NS 1 GM/50 ML 1 GM/50 ML BAG IV SCH (09:20)
[2019-11-23] MEDS: HEPARIN 5,000 UNIT/1 ML VIAL SUB-Q SCH ×2 (09:23→22:11)
[2019-11-23] MEDS: METOPROLOL TARTRATE 100 MG TAB PO SCH (10:00)
[2019-11-23] MEDS: SPIRONOLACTONE 25 MG TAB PO SCH (10:00)
--- NOTE | 2019-11-23 12:24 | Progress Note ---
Assessment and Plan - Patient Problems (1) Dilated cardiomyopathy Current Visit: Yes Status: Acute Plan to address problem: The patient was found with a severe dilated cardiomyopathy, of uncertain chronicity. Thallium stress test shows a small reversible basal inferior defect. In addition to optimal medical therapy, we will consider diagnostic coronary angiography if patient is agreeable to proceed we will proceed with cardiac catheterization on morning. (2) Atrial fibrillation Current Visit: Yes Status: Acute Qualifiers: Atrial fibrillation type: unspecified Qualified Code(s): I48.91 - Unspecified atrial fibrillation Plan to address problem: Rate control of atrial fibrillation is optimal. Oral anticoagulation will be initiated prior to discharge, with consideration of his history of external hemorrhoids. Subjective Date of service: 11/23/19 Interval history: Patient underwent a Lexiscan thallium stress test today, results showed a severely dilated left ventricle, with a small, partially reversible basal inferior defect, suggestive of mild ischemia. Objective Vital Signs Temp Pulse Resp BP Pulse Ox 11/23/19 10:00 20 98 11/23/19 08:16 98.3 F 82 20 133/90 98 11/23/19 02:36 97.3 F L 90 18 132/86 94 11/22/19 23:41 99 11/22/19 20:00 66 100 11/22/19 19:59 98.4 F 18 121/75 11/22/19 19:49 18 96 11/22/19 19:38 76 11/22/19 18:20 76 126/80 11/22/19 18:18 76 126/80 97 11/22/19 13:13 97.3 F L 65 18 109/77 98 - Physical Examination General: No Apparent Distress HEENT: Positive: PERRL Neck: Positive: neck supple Cardiac: Positive: irregularly irregular Lungs: Positive: Decreased Breath Sounds Neuro: Positive: Grossly Intact Abdomen: Positive: Soft Skin: Positive: Clear Extremities: Absent: edema
--- NOTE | 2019-11-23 12:46 | Progress Note ---
Assessment and Plan Assessment and plan: Atrial fibrillation. New onset. Continue medications for rate control. Severe dilated cardiomyopathy. EF of 20 to 25%. Abnormal stress test today. For Cardiac cath on . Acute on chronic systolic heart failure exacerbation. Continue current regimen per cardiology. Continue metoprolol, spironolactone and losartan. Hypertension. Continue current regimen Hyperlipidemia. Continue statins. UTI. Continue Rocephin. Follow-up urine culture. Alzheimer's dementia. Right lower extremity pain. X-rays negative. History Interval history: No chest pain Hospitalist Physical - Physical exam Narrative exam: General appearance: Present: no acute distress, - EENT Eyes: Present: PERRL, EOM intact ENT: hearing intact, clear oral mucosa, dentition normal - Neck Neck: Present: supple, normal ROM - Respiratory Respiratory effort: normal Respiratory: bilateral: CTA - Cardiovascular Rhythm: regular Heart Sounds: Present: S1 & S2 irreg irreg. Absent: gallop, rub - Extremities Extremities: no ischemia, No edema, Full ROM - Abdominal General gastrointestinal: soft, non-tender, non-distended, normal bowel sounds - Integumentary Integumentary: Present: clear, warm, dry - Neurologic Neurologic: CNII-XII intact, moves all extremities,Awake,alert - Constitutional Vitals: Temp Pulse Resp BP Pulse Ox 98.3 F 82 20 133/90 98 11/23/19 08:16 11/23/19 08:16 11/23/19 10:00 11/23/19 08:16 11/23/19 10:00 General appearance: Present: no acute distress Results - Labs CBC & Chem 7: 11/23/19 13:35 11/23/19 13:35 Labs: Laboratory Last Values WBC 5.5 K/mm3 (4.5-11.0) 11/21/19 05:54 RBC 4.09 M/mm3 (3.65-5.03) 11/21/19 05:54 Hgb 12.9 gm/dl (11.8-15.2) 11/21/19 05:54 Hct 39.2 % (35.5-45.6) 11/21/19 05:54 MCV 96 fl (84-94) H 11/21/19 05:54 MCH 32 pg (28-32) 11/21/19 05:54 MCHC 33 % (32-34) 11/21/19 05:54 RDW 17.7 % (13.2-15.2) H 11/21/19 05:54 Plt Count 190 K/mm3 (140-440) 11/21/19 05:54 Lymph % (Auto) 20.9 % (13.4-35.0) 11/21/19 05:54 [place] % (Auto) 10.1 % (0.0-7.3) H 11/21/19 05:54 Eos % (Auto) 1.1 % (0.0-4.3) 11/21/19 05:54 Baso % (Auto) 0.5 % (0.0-1.8) 11/21/19 05:54 Lymph # 1.1 K/mm3 (1.2-5.4) L 11/21/19 05:54 [place] # 0.6 K/mm3 (0.0-0.8) 11/21/19 05:54 Eos # 0.1 K/mm3 (0.0-0.4) 11/21/19 05:54 Baso # 0.0 K/mm3 (0.0-0.1) 11/21/19 05:54 Seg Neutrophils % 67.4 % (40.0-70.0) 11/21/19 05:54 Seg Neutrophils # 3.7 K/mm3 (1.8-7.7) 11/21/19 05:54 Sodium 138 mmol/L (137-145) 11/21/19 05:54 Potassium 4.5 mmol/L (3.6-5.0) 11/21/19 05:54 Chloride 107.9 mmol/L (98-107) H 11/21/19 05:54 Carbon Dioxide 18 mmol/L (22-30) L 11/21/19 05:54 Anion Gap 17 mmol/L 11/21/19 05:54 BUN 22 mg/dL (9-20) H 11/21/19 05:54 Creatinine 1.3 mg/dL (0.8-1.5) 11/21/19 05:54 Estimated GFR > 60 ml/min 11/21/19 05:54 BUN/Creatinine Ratio 17 % 11/21/19 05:54 Glucose 105 mg/dL (75-100) H 11/21/19 05:54 Calcium 9.0 mg/dL (8.4-10.2) 11/21/19 05:54 Magnesium 2.20 mg/dL (1.7-2.3) 11/19/19 18:59 Total Bilirubin 0.60 mg/dL (0.1-1.2) 11/20/19 06:03 AST 32 units/L (5-40) 11/20/19 06:03 ALT 49 units/L (7-56) 11/20/19 06:03 Alkaline Phosphatase 77 units/L (35-129) 11/20/19 06:03 Troponin T 0.012 ng/mL (0.00-0.029) 11/19/19 18:59 NT-Pro-B Natriuret Pep 5711 pg/mL (0-900) H 11/19/19 18:59 Total Protein 5.5 g/dL (6.3-8.2) L D 11/20/19 06:03 Albumin 3.2 g/dL (3.9-5) L 11/20/19 06:03 Albumin/Globulin Ratio 1.4 % 11/20/19 06:03 TSH 1.040 mlU/mL (0.270-4.200) 11/19/19 18:59 Free T4 1.45 ng/dL (0.76-1.46) 11/19/19 18:59 Urine Color Yellow (Yellow) 11/19/19 09:21 Urine Turbidity Clear (Clear) 11/19/19 09:21 Urine pH 5.0 (5.0-7.0) 11/19/19 09:21 Ur Specific [place] 1.019 (1.003-1.030) 11/19/19 09:21 Urine Protein <15 mg/dl mg/dL (Negative) 11/19/19 09:21 Urine Glucose (UA) Neg mg/dL (Negative) 11/19/19 09:21 Urine Ketones Neg mg/dL (Negative) 11/19/19 09:21 Urine Blood Sm (Negative) 11/19/19 09:21 Urine Nitrite Neg (Negative) 11/19/19 09:21 Urine Bilirubin Neg (Negative) 11/19/19 09:21 Urine Urobilinogen < 2.0 mg/dL (<2.0) 11/19/19 09:21 Ur Leukocyte Esterase Sm (Negative) 11/19/19 09:21 Urine WBC (Auto) 24.0 /HPF (0.0-6.0) H 11/19/19 09:21 Urine RBC (Auto) 2.0 /HPF (0.0-6.0) 11/19/19 09:21 U Epithel Cells (Auto) < 1.0 /HPF (0-13.0) 11/19/19 09:21 Urine Mucus Few /HPF 11/19/19 09:21 Urine Opiates Screen Presumptive negative 11/19/19 09:21 Urine Methadone Screen Presumptive negative 11/19/19 09:21 Ur Barbiturates Screen Presumptive negative 11/19/19 09:21 Ur Phencyclidine Scrn Presumptive negative 11/19/19 09:21 Ur Amphetamines Screen Presumptive negative 11/19/19 09:21 U Benzodiazepines Scrn Presumptive negative 11/19/19 09:21 Urine Cocaine Screen Presumptive negative 11/19/19 09:21 U Marijuana (THC) Screen Presumptive negative 11/19/19 09:21 Drugs of Abuse Note Disclamer 11/19/19 09:21 Active Medications - Current Medications Current Medications: Generic Name Dose Route Start Last Admin Trade Name Freq PRN Reason Stop Dose Admin Acetaminophen 650 mg 11/19/19 13:28 Tylenol PO Q4H PRN Pain MILD(1-3)/Fever >100.5/MILLER Albuterol 2.5 mg 11/19/19 13:28 Proventil IH Q4HRT PRN Shortness Of Breath Atorvastatin Calcium 40 mg 11/19/19 22:00 11/22/19 21:34 Lipitor PO 40 mg QHS MIKA Administration Diltiazem HCl 30 mg 11/19/19 18:00 11/23/19 05:21 Cardizem PO 30 mg Q6HR MIKA Administration Heparin Sodium (Porcine) 5,000 unit 11/19/19 22:00 11/23/19 09:23 Heparin SUB-Q 5,000 unit Q12HR MIKA Administration Ceftriaxone Sodium 1 gm in 50 mls @ 100 mls/hr 11/19/19 15:30 11/23/19 09:20 Rocephin/Ns 1 Gm/50 Ml IV 100 mls/hr Q24HR MIKA Administration Protocol Losartan Potassium 50 mg 11/19/19 22:00 11/22/19 21:34 Cozaar PO 50 mg QHS MIKA Administration Metoprolol Tartrate 100 mg 11/19/19 15:00 11/23/19 10:00 Metoprolol PO Not Given DAILY MIKA Ondansetron HCl 4 mg 11/19/19 13:28 11/22/19 13:16 Zofran IV 4 mg Q8H PRN Administration Nausea And Vomiting Sodium Chloride 10 ml 11/19/19 22:00 11/23/19 09:22 Sodium Chloride Flush Syringe 10 Ml IV 10 ml BID MIKA Administration Sodium Chloride 10 ml 11/19/19 13:28 Sodium Chloride Flush Syringe 10 Ml IV 11/29/19 13:27 PRN PRN LINE FLUSH Spironolactone 25 mg 11/20/19 10:00 11/23/19 10:00 Aldactone PO Not Given QDAY MIKA
[2019-11-23 14:00] LABS: Basophils % (Auto) 0.7 % (0.0-1.8); Eosinophils % (Auto) 0.2 % (0.0-4.3); Hematocrit 41.4 % (35.5-45.6); Hemoglobin 13.6 gm/dl (11.8-15.2); Lymphocytes # (Auto) 0.7 K/mm3 (1.2-5.4); Lymphocytes % (Auto) 12.3 % (13.4-35.0); Mean Corpuscular HGB Conc 33 % (32-34); Mean Corpuscular Volume 97 fl (84-94); Monocytes # (Auto) 0.4 K/mm3 (0.0-0.8); Monocytes % (Auto) 6.6 % (0.0-7.3); Platelet Count 187 K/mm3 (140-440); Red Blood Count 4.26 M/mm3 (3.65-5.03); Red Cell Distribution Width 17.8 % (13.2-15.2)
[2019-11-23 14:19] LABS: Calcium 8.7 mg/dL (8.4-10.2)
[2019-11-23] MEDS: LOSARTAN 50 MG TAB PO SCH (22:12)
--- NOTE | 2019-11-24 00:03 | Treadmill Report ---
THALLIUM STRESS TEST LEFT VENTRICLE: Left ventricle is severely dilated. There is a small, partially reversible basal inferior defect. On the resting study, there is mild degree of reversibility. The study was not gated due to the presence of atrial fibrillation. CONCLUSION: Evidence of a severely dilated left ventricle, with a mild degree of reversible basal inferior ischemia. Abnormal study. Clinical correlation, recommend echocardiography for left ventricular function assessment. [facility]# [id number] [facility]
[2019-11-24] MEDS: dilTIAZem 30 MG TAB PO SCH ×4 (01:00→17:16)
--- NOTE | 2019-11-24 06:25 | Event Note ---
Patient with bloody stool reported by the nurse, He has a history of hemorrhoids Check serial hemoglobin, consult GI
[2019-11-24] MEDS: cefTRIAXone/NS 1 GM/50 ML 1 GM/50 ML BAG IV SCH (09:08)
[2019-11-24] MEDS: METOPROLOL TARTRATE 100 MG TAB PO SCH (09:08)
[2019-11-24] MEDS: SPIRONOLACTONE 25 MG TAB PO SCH ×2 (09:08→09:17)
[2019-11-24 10:01] LABS: Hematocrit 39.1 % (35.5-45.6); Hemoglobin 12.9 gm/dl (11.8-15.2)
[2019-11-24] MEDS ORDERED: HYDROCORTISONE 25 MG RECTAL SUPP PR PRN (10:50)
--- NOTE | 2019-11-24 11:08 | Consultation ---
REFERRING PHYSICIAN: Jt Saul MD INDICATION: Rectal bleeding. HISTORY OF PRESENT ILLNESS: The patient is a 79-year-old black male who has been seen by GI for rectal bleeding. The patient presented and was admitted on 11/19/2019, when he presented with high blood pressure and was noted to be in new onset AFib. The patient subsequently has been managed for that and was on medications related to this new diagnosis including blood thinners. The patient reports a history of hemorrhoids in the past and reports that every now and again when he has hard stools, hemorrhoids flare and will notice some rectal bleeding. The patient was being managed for his AFib, when he noted this morning a bout of bright red blood per rectum with bowel movement. He reports he has had none since. He reports his hemorrhoids have been acting up because of his constipation. The patient reports no upper GI symptoms including nausea, vomiting, heartburn or reflux. He reports no other lower GI symptoms. The patient reports his last colonoscopy was 5-6 years ago and had polyps and that he is due for repeat colonoscopy. He denies any other specific GI problems or complaints. PAST MEDICAL HISTORY: 1. Hypertension. 2. High cholesterol. MEDICATIONS: Reviewed and updated in chart. ALLERGIES: No known drug allergies. SOCIAL HISTORY: Denies alcohol, tobacco or IV drug abuse. FAMILY HISTORY: Negative for colon cancer, IBD, or liver disease. REVIEW OF SYSTEMS: GENERAL: Reports some weakness. HEENT: No visual complaints or tinnitus. PULMONARY: No shortness of breath. CARDIOVASCULAR: No chest pain. GASTROINTESTINAL: Reports some rectal bleeding. All points of 13-point review of systems otherwise negative. PHYSICAL EXAMINATION: VITAL SIGNS: Temperature of 97.9, pulse 100, respirations 20, blood pressure 142/90. GENERAL: Fairly nourished male, in no acute distress. HEENT: Pupils are equal, round and reactive. PULMONARY: Clear to auscultation bilaterally. CARDIOVASCULAR: Regular rate and rhythm. Normal S1, S2. ABDOMEN: Positive bowel sounds, soft. SKIN: No obvious rashes. LABORATORY DATA: Pertinent for a white count of 5.8, hemoglobin and hematocrit of 13.6 and 41.4, platelet count of 187. Chem-7 within normal limits. ASSESSMENT AND PLAN: A 79-year-old black male with a history of colon polyps and due for repeat colonoscopy with his last being 5 years ago with polyps noted and reports a history of intermittent bright red blood per rectum, which he feels is secondary to hemorrhoids when he strains or gets constipated, admitted now for new onset atrial fibrillation and had one bout of bright red blood per rectum this morning. The patient does report that he has been straining, little constipated. He reports no other specific GI symptoms. Symptoms are most likely secondary to hemorrhoids. Given he is otherwise stable and his blood counts are stable, we will take a more conservative approach. PLAN: 1. Follow hematocrit and transfuse as needed. 2. Continue current medications and diet. 3. We will start suppositories for hemorrhoids. 4. The patient will require colonoscopy, but can be done as an outpatient with no plans to scope at this time unless more worsening bleeding. 5. We will follow. JOB# [id number] JOSE/ARTHUR
--- NOTE | 2019-11-24 11:38 | Progress Note ---
Assessment and Plan - Patient Problems (1) Shortness of breath Current Visit: Yes Status: Acute Plan to address problem: Shortness of breath following intravenous infusion, in addition to bilateral lower extremity edema, will suggest concern for acute on chronic systolic heart failure with fluid overload. Recommend that the patient is transferred to telemetry, initiate intravenous diuretics, 12-lead EKG and chest x-ray. (2) Dilated cardiomyopathy Current Visit: Yes Status: Acute Plan to address problem: The patient was found with a severe dilated cardiomyopathy, of uncertain chronicity. Thallium stress test shows a small reversible basal inferior defect. In addition to optimal medical therapy, we will proceed with diagnostic coronary angiography tomorrow morning. (3) Atrial fibrillation Current Visit: Yes Status: Acute Qualifiers: Atrial fibrillation type: unspecified Qualified Code(s): I48.91 - Unspecified atrial fibrillation Plan to address problem: Rate control of atrial fibrillation is optimal. Oral anticoagulation will be initiated prior to discharge, with consideration of his history of external hemorrhoids. Subjective Date of service: 11/24/19 Interval history: Patient complains of shortness of breath and orthopnea, which he states started after IV antibiotic infusion. In addition, there is 1-2+ bilateral lower extremity edema. Objective Vital Signs Temp Pulse Resp BP BP Pulse Ox 11/24/19 10:00 99 11/24/19 09:08 142/93 11/24/19 07:42 97.9 F 117 H 20 142/93 99 11/24/19 02:00 98.6 F 91 H 20 148/92 11/24/19 01:56 70 154/100 96 11/23/19 20:45 98.6 F 52 L 18 128/85 99 11/23/19 20:32 18 96 11/23/19 20:06 65 11/23/19 19:54 100 11/23/19 17:41 65 122/61 11/23/19 17:40 65 122/61 11/23/19 17:37 48 L 122/61 100 11/23/19 15:02 99 11/23/19 13:23 57 L 143/91 11/23/19 13:21 97.5 F L 57 L 143/91 96 - Physical Examination General: Other (mild shortness of breath) HEENT: Positive: PERRL Neck: Positive: neck supple Cardiac: Positive: Reg Rate and Rhythm Lungs: Positive: Decreased Breath Sounds Neuro: Positive: Grossly Intact Abdomen: Positive: Soft Skin: Positive: Clear Extremities: Present: +1 Edema - Labs and Meds CBC 11/23/19 11/24/19 Range/Units 13:35 09:50 WBC 5.8 (4.5-11.0) K/mm3 RBC 4.26 (3.65-5.03) M/mm3 Hgb 13.6 12.9 (11.8-15.2) gm/dl Hct 41.4 39.1 (35.5-45.6) % Plt Count 187 (140-440) K/mm3 Lymph # 0.7 L (1.2-5.4) K/mm3 [place] # 0.4 (0.0-0.8) K/mm3 Eos # 0.0 (0.0-0.4) K/mm3 Baso # 0.0 (0.0-0.1) K/mm3 Comprehensive Metabolic Panel 11/23/19 Range/Units 13:35 Sodium 141 (137-145) mmol/L Potassium 4.2 (3.6-5.0) mmol/L Chloride 107.7 H (98-107) mmol/L Carbon Dioxide 20 L (22-30) mmol/L BUN 23 H (9-20) mg/dL Creatinine 1.4 (0.8-1.5) mg/dL Glucose 120 H (75-100) mg/dL Calcium 8.7 (8.4-10.2) mg/dL
[2019-11-24] MEDS: FUROSEMIDE 40 MG/4 ML INJ IV SCH ×2 (12:06→17:15)
--- NOTE | 2019-11-24 13:00 | Progress Note ---
Assessment and Plan Assessment and plan: Atrial fibrillation. New onset. Continue medications for rate control. Severe dilated cardiomyopathy. EF of 20 to 25%. Abnormal stress test today. For Cardiac cath on . Hemorrhoids with mild blood in stool GI following Acute on chronic systolic heart failure exacerbation. Continue current regimen per cardiology. Continue metoprolol, spironolactone and losartan. Hypertension. Continue current regimen Hyperlipidemia. Continue statins. UTI. Continue Rocephin. Follow-up urine culture. Alzheimer's dementia. Right lower extremity pain. X-rays negative. History Interval history: No chest pain Mild blood in stool from hemorrhoids Hospitalist Physical - Physical exam Narrative exam: General appearance: Present: no acute distress, - EENT Eyes: Present: PERRL, EOM intact ENT: hearing intact, clear oral mucosa, dentition normal - Neck Neck: Present: supple, normal ROM - Respiratory Respiratory effort: normal Respiratory: bilateral: CTA - Cardiovascular Rhythm: regular Heart Sounds: Present: S1 & S2 irreg irreg. Absent: gallop, rub - Extremities Extremities: no ischemia, No edema, Full ROM - Abdominal General gastrointestinal: soft, non-tender, non-distended, normal bowel sounds - Integumentary Integumentary: Present: clear, warm, dry - Neurologic Neurologic: CNII-XII intact, moves all extremities,Awake,alert - Constitutional Vitals: Temp Pulse Resp BP Pulse Ox 97.9 F 89 20 142/93 99 11/24/19 07:42 11/24/19 12:06 11/24/19 07:42 11/24/19 09:08 11/24/19 10:00 General appearance: Present: no acute distress Results - Labs CBC & Chem 7: 11/24/19 09:50 11/23/19 13:35 Labs: Laboratory Last Values WBC 5.8 K/mm3 (4.5-11.0) 11/23/19 13:35 RBC 4.26 M/mm3 (3.65-5.03) 11/23/19 13:35 Hgb 12.9 gm/dl (11.8-15.2) 11/24/19 09:50 Hct 39.1 % (35.5-45.6) 11/24/19 09:50 MCV 97 fl (84-94) H 11/23/19 13:35 MCH 32 pg (28-32) 11/23/19 13:35 MCHC 33 % (32-34) 11/23/19 13:35 RDW 17.8 % (13.2-15.2) H 11/23/19 13:35 Plt Count 187 K/mm3 (140-440) 11/23/19 13:35 Lymph % (Auto) 12.3 % (13.4-35.0) L 11/23/19 13:35 [place] % (Auto) 6.6 % (0.0-7.3) 11/23/19 13:35 Eos % (Auto) 0.2 % (0.0-4.3) 11/23/19 13:35 Baso % (Auto) 0.7 % (0.0-1.8) 11/23/19 13:35 Lymph # 0.7 K/mm3 (1.2-5.4) L 11/23/19 13:35 [place] # 0.4 K/mm3 (0.0-0.8) 11/23/19 13:35 Eos # 0.0 K/mm3 (0.0-0.4) 11/23/19 13:35 Baso # 0.0 K/mm3 (0.0-0.1) 11/23/19 13:35 Seg Neutrophils % 80.2 % (40.0-70.0) H 11/23/19 13:35 Seg Neutrophils # 4.7 K/mm3 (1.8-7.7) 11/23/19 13:35 Sodium 141 mmol/L (137-145) 11/23/19 13:35 Potassium 4.2 mmol/L (3.6-5.0) 11/23/19 13:35 Chloride 107.7 mmol/L (98-107) H 11/23/19 13:35 Carbon Dioxide 20 mmol/L (22-30) L 11/23/19 13:35 Anion Gap 18 mmol/L 11/23/19 13:35 BUN 23 mg/dL (9-20) H 11/23/19 13:35 Creatinine 1.4 mg/dL (0.8-1.5) 11/23/19 13:35 Estimated GFR 59 ml/min 11/23/19 13:35 BUN/Creatinine Ratio 16 % 11/23/19 13:35 Glucose 120 mg/dL (75-100) H 11/23/19 13:35 Calcium 8.7 mg/dL (8.4-10.2) 11/23/19 13:35 Magnesium 2.20 mg/dL (1.7-2.3) 11/19/19 18:59 Total Bilirubin 0.60 mg/dL (0.1-1.2) 11/20/19 06:03 AST 32 units/L (5-40) 11/20/19 06:03 ALT 49 units/L (7-56) 11/20/19 06:03 Alkaline Phosphatase 77 units/L (35-129) 11/20/19 06:03 Troponin T 0.012 ng/mL (0.00-0.029) 11/19/19 18:59 NT-Pro-B Natriuret Pep 5711 pg/mL (0-900) H 11/19/19 18:59 Total Protein 5.5 g/dL (6.3-8.2) L D 11/20/19 06:03 Albumin 3.2 g/dL (3.9-5) L 11/20/19 06:03 Albumin/Globulin Ratio 1.4 % 11/20/19 06:03 TSH 1.040 mlU/mL (0.270-4.200) 11/19/19 18:59 Free T4 1.45 ng/dL (0.76-1.46) 11/19/19 18:59 Urine Color Yellow (Yellow) 11/19/19 09:21 Urine Turbidity Clear (Clear) 11/19/19 09:21 Urine pH 5.0 (5.0-7.0) 11/19/19 09:21 Ur Specific [place] 1.019 (1.003-1.030) 11/19/19 09:21 Urine Protein <15 mg/dl mg/dL (Negative) 11/19/19 09:21 Urine Glucose (UA) Neg mg/dL (Negative) 11/19/19 09:21 Urine Ketones Neg mg/dL (Negative) 11/19/19 09:21 Urine Blood Sm (Negative) 11/19/19 09:21 Urine Nitrite Neg (Negative) 11/19/19 09:21 Urine Bilirubin Neg (Negative) 11/19/19 09:21 Urine Urobilinogen < 2.0 mg/dL (<2.0) 11/19/19 09:21 Ur Leukocyte Esterase Sm (Negative) 11/19/19 09:21 Urine WBC (Auto) 24.0 /HPF (0.0-6.0) H 11/19/19 09:21 Urine RBC (Auto) 2.0 /HPF (0.0-6.0) 11/19/19 09:21 U Epithel Cells (Auto) < 1.0 /HPF (0-13.0) 11/19/19 09:21 Urine Mucus Few /HPF 11/19/19 09:21 Urine Opiates Screen Presumptive negative 11/19/19 09:21 Urine Methadone Screen Presumptive negative 11/19/19 09:21 Ur Barbiturates Screen Presumptive negative 11/19/19 09:21 Ur Phencyclidine Scrn Presumptive negative 11/19/19 09:21 Ur Amphetamines Screen Presumptive negative 11/19/19 09:21 U Benzodiazepines Scrn Presumptive negative 11/19/19 09:21 Urine Cocaine Screen Presumptive negative 11/19/19 09:21 U Marijuana (THC) Screen Presumptive negative 11/19/19 09:21 Drugs of Abuse Note Disclamer 11/19/19 09:21 Active Medications - Current Medications Current Medications: Generic Name Dose Route Start Last Admin Trade Name Freq PRN Reason Stop Dose Admin Acetaminophen 650 mg 11/19/19 13:28 Tylenol PO Q4H PRN Pain MILD(1-3)/Fever >100.5/MILLER Albuterol 2.5 mg 11/19/19 13:28 Proventil IH Q4HRT PRN Shortness Of Breath Atorvastatin Calcium 40 mg 11/19/19 22:00 11/23/19 22:12 Lipitor PO 40 mg QHS MIKA Administration Diltiazem HCl 30 mg 11/19/19 18:00 11/24/19 12:06 Cardizem PO 30 mg Q6HR MIKA Administration Furosemide 40 mg 11/24/19 12:00 11/24/19 12:06 Lasix IV 11/24/19 18:01 40 mg 0600,1800 MIKA Administration Furosemide 40 mg 11/25/19 10:00 Lasix IV QDAY MIKA Hydrocortisone Acetate 25 mg 11/24/19 10:50 Anucort-Hc AL Q12H PRN Hemorrhoids Ceftriaxone Sodium 1 gm in 50 mls @ 100 mls/hr 11/19/19 15:30 11/24/19 09:08 Rocephin/Ns 1 Gm/50 Ml IV 100 mls/hr Q24HR MIKA Administration Protocol Losartan Potassium 50 mg 11/19/19 22:00 11/23/19 22:12 Cozaar PO 50 mg QHS MIKA Administration Metoprolol Tartrate 100 mg 11/19/19 15:00 11/24/19 09:08 Metoprolol PO 100 mg DAILY MIKA Administration Ondansetron HCl 4 mg 11/19/19 13:28 11/22/19 13:16 Zofran IV 4 mg Q8H PRN Administration Nausea And Vomiting Sodium Chloride 10 ml 11/19/19 22:00 11/24/19 09:09 Sodium Chloride Flush Syringe 10 Ml IV 10 ml BID MIKA Administration Sodium Chloride 10 ml 11/19/19 13:28 Sodium Chloride Flush Syringe 10 Ml IV 11/29/19 13:27 PRN PRN LINE FLUSH Spironolactone 25 mg 11/20/19 10:00 11/24/19 09:17 Aldactone PO Not Given QDAY MIKA
[2019-11-24 15:26] LABS: Hematocrit 38.3 % (35.5-45.6); Hemoglobin 12.6 gm/dl (11.8-15.2)
[2019-11-24] MEDS: LOSARTAN 50 MG TAB PO SCH (21:10)
[2019-11-25] MEDS: dilTIAZem 30 MG TAB PO SCH ×5 (00:36→23:31)
[2019-11-25] MEDS ORDERED: SODIUM CHLORIDE 0.9% 500 ML 500 ML ONE (09:23)
[2019-11-25] MEDS ORDERED: SODIUM CHLORIDE 0.9% 500 ML 500 ML IV SCH (09:30)
--- NOTE | 2019-11-25 09:47 | Progress Note ---
Assessment and Plan Afib, rate control on diltiazem and metoprolol Dilated CMP, uncertain duration EF 25-30% by echo this admission EF 50-55% in 2015 HTN HLD Subjective Date of service: 11/25/19 Interval history: Cardiac cath postponed due to concerns of acute on chronic systolic heart f ailure with fluid overload. Objective Vital Signs Temp Pulse Resp Resp BP Pulse Ox 11/25/19 07:54 98.4 F 87 18 139/92 94 11/25/19 05:53 97 H 148/103 11/25/19 04:28 97.8 F 103 H 19 148/103 97 11/25/19 00:36 111 H 165/98 11/25/19 00:15 97.6 F 93 H 18 165/98 98 11/24/19 21:10 100 H 118/88 11/24/19 20:19 68 20 118/88 99 11/24/19 19:40 81 11/24/19 18:00 74 11/24/19 17:16 88 138/92 11/24/19 17:00 20 11/24/19 13:48 76 96 11/24/19 12:06 89 11/24/19 10:00 99 - Physical Examination General: Other (mild shortness of breath) HEENT: Positive: PERRL Neck: Positive: neck supple Neuro: Positive: Grossly Intact Abdomen: Positive: Soft Skin: Positive: Clear Extremities: Present: +1 Edema - Labs and Meds CBC 11/24/19 11/24/19 Range/Units 09:50 15:07 Hgb 12.9 12.6 (11.8-15.2) gm/dl Hct 39.1 38.3 (35.5-45.6) %
[2019-11-25 09:59] LABS: INR 1.09 (0.87-1.13)
[2019-11-25] MEDS ORDERED: FUROSEMIDE 40 MG/4 ML INJ IV SCH (10:00)
[2019-11-25 10:15] LABS: BUN/Creatinine Ratio 18; Blood Urea Nitrogen 23 mg/dL (9-20); Calcium 8.7 mg/dL (8.4-10.2); Hemolysis Index 14
[2019-11-25] MEDS ORDERED: HEPARIN/NS 5000 UNIT/500ML 1,000 ML IR ONE (11:00)
[2019-11-25] MEDS: MIDAZOLAM 2 MG/2 ML INJ ONE ×2 (11:15→11:17)
[2019-11-25] MEDS: fentaNYL 100 MCG/2 ML INJ ONE ×2 (11:15→11:17)
[2019-11-25] MEDS: LIDOCAINE (2%) 20 MG/1 ML VIAL 20 ML MDV INFILTRATI ONE ×2 (11:15→11:19)
[2019-11-25] MEDS: HEPARIN 10,000 UNITS/10 ML VIAL ONE ×2 (11:16→11:21)
[2019-11-25] MEDS: VERAPAMIL 5 MG/2 ML INJ ONE ×2 (11:16→11:21)
[2019-11-25] MEDS: NITROGLYCERIN SYRINGE 3 ML ONE ×2 (11:19→11:21)
--- NOTE | 2019-11-25 11:55 | Cardiac Catherization Report ---
REASON FOR PROCEDURE: Congestive heart failure, dilated cardiomyopathy, abnormal thallium stress test. PROCEDURES: 1. Left heart catheterization. 2. Selective left and right coronary angiography. 3. Left ventricular angiography. 4. Sedation time, start 11:18, end 11:33. PROCEDURE IN DETAIL: The patient was prepped and draped in a sterile fashion after informed consent. The right radial cath site was prepped and draped after a negative Harrison's test. The right radial artery was entered using Seldinger technique, followed by placement of a 6-[place] hydrophilic sheath. Routine radial cocktail was administered via the sheath. Selective left and right coronary angiography was performed using a #3.5 left Ameya and a #4 right Ameya. A pigtail catheter was used for left ventricular angiography. The catheters were removed, sheath removed, and hemostasis achieved using a TR band. The patient was returned to the post-procedure unit in stable condition. There were no complications. FINDINGS: HEMODYNAMICS: Left ventricular end-diastolic pressure was 27, following coronary angiography. Ascending aortic pressure was 140/90. There was no significant pressure gradient on pullback across the aortic valve. CORONARY ANGIOGRAPHY: The left main coronary artery was free of significant disease. The left anterior descending artery contained a 75% stenosis in its proximal segment, adjacent to its ostium. Following this, there was another irregular 70-75% stenosis of the mid LAD. A medium sized first diagonal branch of the LAD contained a long, 90% stenosis. A large ramus intermedius artery was completely occluded in its proximal to mid segment. This was a chronic total occlusion. The vessel was reconstituted by left to left collaterals. The AV groove circumflex then terminated in a medium sized terminal obtuse marginal. There was a long, greater than 99% stenosis of the AV groove leading to this terminal branch. The right coronary artery was dominant. This vessel was completely occluded in its proximal segment. There was reconstitution of the mid and distal right coronary segments by collaterals from the left coronary system. The left ventricle was moderately to severely dilated. There was severe left ventricular systolic dysfunction, with an ejection fraction less than 15-20%. CONCLUSION: 1. Severe 3-vessel coronary artery disease. 2. Severe ischemic cardiomyopathy, with left ventricular ejection fraction 15-20%. RECOMMENDATIONS: The patient will be referred for coronary artery bypass surgery with targets to the LAD, diagonal branch, ramus intermedius, right coronary artery and possibly the distal circumflex. JOB# [id number] GIOVANI/ARTHUR
--- NOTE | 2019-11-25 12:06 | Event Note ---
Date: 11/25/19 Catheterization was completed via the right radial approach, no complications. We found severe three-vessel coronary artery disease including a moderately severe stenosis of the proximal LAD. There was severe left ventricular systolic dysfunction, ejection fraction 15- 20%. Patient is recommended for CT surgical evaluation for multivessel coronary artery bypass.
[2019-11-25] MEDS ORDERED: SODIUM CHLORIDE 0.9% 1000 ML 1,000 ML IV SCH (12:15)
--- NOTE | 2019-11-25 13:34 | Discharge Summary ---
Providers - Providers Date of Admission: 11/19/19 13:28 Date of discharge: 11/25/19 Attending physician: JOSEPH STRICKLAND 11/19/19 14:19 Consult to Cardiology [CONS] Routine Consulting Provider: DAMIAN SANTILLAN Reason For Exam: Atrial fib/chf 11/24/19 06:23 Consult to Physician [CONS] Routine Comment: called answ. serv/ marcella Consulting Provider: ROOSEVELT PRITCHARD Physician Instructions: Reason For Exam: bloody stool 11/25/19 12:02 Consult to Cardiac Rehabilitation [CONS] Routine Reason For Exam: Cardiac Rehab Evaluation Primary care physician: DANNY LOPEZ Hospitalization Condition: Fair Disposition: DC-30 STILL A PATIENT Exam - Constitutional Vitals: Temp Pulse Resp BP Pulse Ox 97.5 F L 100 H 20 145/100 97 11/25/19 13:05 11/25/19 13:05 11/25/19 13:05 11/25/19 13:05 11/25/19 13:05 Plan Activity: other (bed rest) Plan of Treatment: 1. Discharge to [place] 2.Follow up with GI Physician after discharge from [facility] Follow up with: PRIMARY CAREMD [Referring] - 3-5 Days
--- NOTE | 2019-11-25 13:35 | Gastroenterology Progress Note ---
Assessment and Plan 1.rectal bleeding -H/H WNL (12.6/38.3)-stable -continue to monitor H/H and transfuse as needed -no active signs of bleeding overnight or this am -etiology-likely anorectal in origin (hemorrhoids given hx) -no plan for scope at this time (s/p cardiac cath this am with results showing severe coronary disease with bypass recommended) -continue topical steroid for hemorrhoids -continue supportive care -no further GI recommendations at this time -will sign off, please call if needed Subjective Date of service: 11/25/19 Principal diagnosis: bloody stool Interval history: No active signs of bleeding overnight or this am. Objective - Constitutional Vitals: Temp Pulse Resp BP Pulse Ox 97.5 F L 100 H 20 145/100 97 11/25/19 13:05 11/25/19 13:05 11/25/19 13:05 11/25/19 13:05 11/25/19 13:05 General appearance: no acute distress - EENT Eyes: PERRL, EOM intact ENT: hearing intact - Cardiovascular Rhythm: other (irregular) - Gastrointestinal General gastrointestinal: Present: soft, non-tender, non-distended, normal bowel sounds - Neurologic Neurological: alert and oriented x3 - Labs CBC & Chem 7: 11/24/19 15:07 11/25/19 07:59 Labs: Laboratory Results - last 24 hr 11/24/19 11/25/19 11/25/19 15:07 07:59 07:59 Hgb 12.6 Hct 38.3 PT 14.2 INR 1.09 Sodium 141 Potassium 4.3 Chloride 106.4 Carbon Dioxide 19 L Anion Gap 20 BUN 23 H Creatinine 1.3 Estimated GFR > 60 BUN/Creatinine Ratio 18 Glucose 75 Calcium 8.7
[2019-11-25] MEDS ORDERED: ASPIRIN 81 MG TAB CHEW PO STA (13:38)
[2019-11-25] MEDS: cefTRIAXone/NS 1 GM/50 ML 1 GM/50 ML BAG IV SCH (13:58)
[2019-11-25] MEDS: METOPROLOL TARTRATE 100 MG TAB PO SCH (14:20)
[2019-11-25] MEDS: SPIRONOLACTONE 25 MG TAB PO SCH (14:20)
[2019-11-25 21:21] VITALS: BP 108/71
[2019-11-25] MEDS: LOSARTAN 50 MG TAB PO SCH (23:31)
[2019-11-26] MEDS ORDERED: ASPIRIN EC 325 MG TAB PO SCH (10:00)
== END 2019-11-25 23:00 | disposition short-term general hospital (02) | DRG 286 ==
LOC: ED 22:29 → 2B-ACE 11-19 13:28 → 4A 11-24 16:26
PROVIDERS: ADMIT Internal Medicine; ATTEND Internal Medicine
PROC: 4A023N7 Measurement of Cardiac Sampling and Pressure, Left Heart, Percutaneous Approach (ICD-10-PCS; principal; 2019-11-25)
PROC: B2111ZZ Fluoroscopy of Multiple Coronary Arteries using Low Osmolar Contrast (ICD-10-PCS; 2019-11-25)
PROC: B2151ZZ Fluoroscopy of Left Heart using Low Osmolar Contrast (ICD-10-PCS; 2019-11-25)
DX: I11.0 Hypertensive heart disease with heart failure (principal); E43 Unspecified severe protein-calorie malnutrition; N39.0 Urinary tract infection, site not specified; Z68.1 Body mass index [BMI] 19.9 or less, adult; K62.5 Hemorrhage of anus and rectum; I48.91 Unspecified atrial fibrillation; I50.43 Acute on chronic combined systolic (congestive) and diastolic (congestive) heart failure; I42.0 Dilated cardiomyopathy; G30.9 Alzheimer's disease, unspecified; F02.80 Dementia in other diseases classified elsewhere, unspecified severity, without behavioral disturbance, psychotic disturbance, mood disturbance, and anxiety; E78.5 Hyperlipidemia, unspecified; I25.5 Ischemic cardiomyopathy; E78.00 Pure hypercholesterolemia, unspecified; I25.10 Atherosclerotic heart disease of native coronary artery without angina pectoris; Z79.01 Long term (current) use of anticoagulants; Z79.899 Other long term (current) drug therapy
CPT/HCPCS: 36415; 71046; 78452; 80048; 80053; 80307; 81001; 83735; 83880; 84439; 84443; 84484; 85014; 85018; 85025; 85610; 87086; 93005; 93010; 93017; 93306; 93458; 94760; 96365; 96372; 96375; G0378; A9270-GY; A9502; C1894; J0696; J1644; J1940; J2250; J2405; J2785; J3010; J7030; J7040; Q9967